=== PATIENT | male | born 1990 | race Two or more races ===

== ENCOUNTER 2019-02-10 02:38 | Emergency (ER) | payer SELFPAY ==
[~2019-02-10] VITALS: Ht 172.7 cm; Wt 83.9 kg
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
[2019-02-10] MEDS ORDERED: Acetaminophen 500mg (ES) tab ORAL ONE (03:15)
[2019-02-10] MEDS ORDERED: Tetanus/Diptheria/Pertussis IM ONE (03:15)
--- NOTE | 2019-02-10 03:15 | NUR ---
ED Nurse Note: Returned from break, resumed care from SIDDHARTHA Rodriguez, pt in bed resting quietly, arouses easily, denies any acute changes or distress, will closely monitor while pt waits for results, ordered tylenol instructed to be held by md at this time.
[2019-02-10 03:36] VITALS: BP 142/90
[2019-02-10] MEDS ORDERED: ZOFRAN4 MG ORAL (03:39)
[2019-02-10] MEDS ORDERED: ACETAMINOPHEN500 M3 ORAL (03:39)
--- NOTE | 2019-02-10 03:51 | Diagnostic Imaging Report ---
EXAM: CT Head Without Intravenous Contrast CLINICAL HISTORY: PAIN TECHNIQUE: Axial computed tomography images of the head brain without intravenous contrast. CTDI is 62.7 mGy and DLP is 1551.8 mGy-cm. One or more of the following dose reduction techniques were used: automated exposure control, adjustment of the mA and or kV according to patient size, use of iterative reconstruction technique. COMPARISON: No relevant prior studies available. FINDINGS: Brain: No hemorrhage, extra-axial fluid collection, mass effect, or edema. No grossly evident acute ischemic infarct. Ventricles: Unremarkable. No ventriculomegaly. Bones joints: Unremarkable. No acute fracture. Sinuses: Unremarkable as visualized. No acute sinusitis. Mastoid air cells: Unremarkable as visualized. No mastoid effusion. Orbits: Small hematoma adjacent to the left eye. IMPRESSION: No acute findings in the head brain.
--- NOTE | 2019-02-10 04:04 | Diagnostic Imaging Report ---
EXAM: CT Maxillofacial Without Intravenous Contrast CLINICAL HISTORY: PAIN TECHNIQUE: Axial computed tomography images of the face without intravenous contrast. CTDI is 29.6 mGy and DLP is 633.8 mGy-cm. One or more of the following dose reduction techniques were used: automated exposure control, adjustment of the mA and or kV according to patient size, use of iterative reconstruction technique. COMPARISON: No relevant prior studies available. FINDINGS: Bones joints: No acute fracture. Soft tissues: Unremarkable. Sinuses: Mild mucosal thickening within the maxillary sinuses. Mastoid air cells: Unremarkable as visualized. No mastoid effusion. Orbits: Small hematoma adjacent to the left eye. No traumatic injury to the globe or post septal soft tissues. IMPRESSION: No facial fracture.
[2019-02-10 04:10] VITALS: BP 142/90
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
== END 2019-02-10 04:10 | disposition home or self-care (01) ==
LOC: EMR 03:24
DX: S09.90XA Unspecified injury of head, initial encounter (principal); S00.12XA Contusion of left eyelid and periocular area, initial encounter; H11.32 Conjunctival hemorrhage, left eye; Y04.8XXA Assault by other bodily force, initial encounter; Y92.9 Unspecified place or not applicable; Z23 Encounter for immunization
CPT/HCPCS: 70450; 70486; 90471; 90715; 99284